=== PATIENT | female | born 1975 | race Caucasian/White ===

== ENCOUNTER 2019-02-14 20:14 | Emergency (ER) | payer MEDICAID ==
[~2019-02-14] VITALS: Ht 167.6 cm; Wt 90.8 kg
[2019-02-14 22:29] LABS: APPEARANCE,URINE Slightly Cloudy (CLEAR); BILIRUBIN,URINE SMALL (NEGATIVE); BLOOD, URINE Negative Ery/uL (NEGATIVE); COLOR,URINE Yellow (YELLOW); KETONES,URINE Trace (NEGATIVE); LEUKOCYTE ESTERASE ,URINE Trace (NEGATIVE); NITRITE, URINE Negative (NEGATIVE); PROTEIN,URINE 30 mg/dl (NEGATIVE); UGLUCOSE Negative (NEGATIVE)
[2019-02-14 22:29] LABS: EOSINOPHILS % (AUTO) 1.8 % (0.0-6.0); WHITE BLOOD COUNT (AUTO) 6.5 K/uL (4.3-11.0)
[2019-02-14 22:31] LABS: CALCIUM, SERUM 8.5 mg/dL (8.5-10.1); CARBON DIOXIDE 25 mmol/L (21-32); CHLORIDE 106 mmol/L (98-107); GLUCOSE 100 mg/dL (74-106); POTASSIUM 3.3 mmol/L (3.5-5.1); SODIUM SERUM 141 mmol/L (136-145); UREA NITROGEN, BLOOD 14 mg/dL (7-18)
[2019-02-14 22:33] LABS: HEMATOCRIT 35 % (33-45); MEAN CORPUSCULAR HGB CONC 34 g/dl (31.0-36.0)
[2019-02-14 22:34] LABS: BASOPHILS % (AUTO) 1.3 % (0.0-2.0); LYMPHOCYTES # (AUTO) 1.3 /CMM (0.8-4.8); LYMPHOCYTES % (AUTO) 20.1 % (20.0-44.0); MONOCYTES % (AUTO) 9.7 % (2.0-12.0); NEUTROPHILS # (AUTO) 4.3 /CMM (1.8-8.9); NEUTROPHILS % (AUTO) 67.1 % (43.0-81.0)
[2019-02-14 22:35] LABS: BASOPHILS # (AUTO) 0.1 /CMM (0.0-0.2); MEAN CORPUSCULAR VOLUME 87 fL (82-100); MONOCYTES # (AUTO) 0.6 /CMM (0.1-1.30); PLATELET COUNT (AUTO) 212 /CMM (150-450); RED BLOOD CELL COUNT(AUTO) 4.03 MIL/uL (4.0-5.2)
[2019-02-14 22:37] LABS: ALANINE AMINOTRANSFERASE 30 U/L (12-78); ALBUMIN 3.8 g/dL (3.4-5.0); ALCOHOL, BLOOD < 3 mg/dL (0-0); ALKALINE PHOSPHATASE 73 U/L (46-116); ASPARTATE AMINOTRANSFERASE 19 U/L (15-37); BILIRUBIN,DIRECT 0.2 mg/dL (0.0-0.2); BILIRUBIN,TOTAL 0.7 mg/dL (0.2-1.0); TOTAL PROTEIN, SERUM 6.9 g/dL (6.4-8.2)
[2019-02-14 22:38] LABS: ACETAMINOPHEN 0 ug/ml (10-30); SALICYLATE 0.7 mg/dL (2.8-20.0)
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
[2019-02-14 23:13] LABS: BACTERIA,URINE Few /HPF (None Seen); RBC,URINE 0-2 /HPF (0-2); SQUAMOUS EPITHELIAL CELL,UR Few /HPF (None Seen)
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
[2019-02-15] MEDS ORDERED: LORAZEPAM INJ 2 MG/ML VIAL IM ONE (02:00)
--- NOTE | 2019-02-15 02:00 | NUR ---
PSYCH EVAL BEING DONE BY LILIYA
[2019-02-15] MEDS ORDERED: LORAZEPAM INJ 2 MG/ML VIAL ONE (02:07)
--- NOTE | 2019-02-15 02:18 | NUR ---
ADMINISTERED ATIVAN 2MG IM ON RT DELTOID
--- NOTE | 2019-02-15 03:38 | NUR ---
Pt IS COMFORTABLY ASLEEP IN BED. NO S/S OF ACUTE DISTRESS OR SOB NOTED. REPIRATIONS EVEN AND UNLABORED. SITTER AT BEDSIDE FOR SAFETY. WILL CONTINUE TO MONITOR Pt's CONDITION AND SAFETY.
--- NOTE | 2019-02-15 06:46 | NUR ---
SPOKE WITH Pt's MOTHER ON THE PHONE TO SEE IF SHE CAN MENU PLANNER HER DAUGHTER IN THE ER. THE MOTHER SAID SHE CANNOT MENU PLANNER HER DAUGHTER RIGHT NOW BECAUSE SHE TOOK A SLEEPING PILL AT NIGHT AND STILL FEELS DROWSY FROM IT AND DOES NOT FEEL SAFE TO BE DRIVING AT THIS TIME. MOTHER SAID SHE WILL TRY TO MENU PLANNER HER DAUGHTER LATER ON AROUND 9AM IF SHE CAN.
--- NOTE | 2019-02-15 06:47 | NUR ---
CHANA TREVIZO (MOTHER) HOME #: [phone] HOME ADDRESS: [id number] [place] [address]
--- NOTE | 2019-02-15 07:30 | NUR ---
REPORT RECEIVED FROM ROBERT SHORT FOR U[facility]
--- NOTE | 2019-02-15 07:31 | NUR ---
ENDORSED TO DAYSHIFT CAMPER ASSEMBLERDEJA RICHARDSON FOR Pt's U[facility]O. Pt IS RESTING IN BED. NO S/S OF ACUTE DISTRESS OR SOB NOTED. RESPIRATIONS EVEN AND UNLABORED.
--- NOTE | 2019-02-15 07:35 | NUR ---
Sitter at bedside.
--- NOTE | 2019-02-15 08:40 | NUR ---
Provided w breakfast tray. Pt tolerating PO well.
--- NOTE | 2019-02-15 11:36 | NUR ---
Patient discharged to home, provided w taxi voucher in stable condition, going to [facility]. Written and verbal after care instructions given. Patient verbalizes understanding of instruction.
[2019-02-15 11:40] VITALS: BP 136/71
== END 2019-02-15 11:41 | disposition home or self-care (01) ==
LOC: ER 20:31
DX: F20.9 Schizophrenia, unspecified (principal); I10 Essential (primary) hypertension; Z60.2 Problems related to living alone
CPT/HCPCS: 36415; 80048; 80076; 80305; 80307; 80329; 81001; 84703; 85025; 87086; 96372; 99284; G0480; J2060; 81000-TC

== ENCOUNTER 2021-12-29 19:13 | Emergency (ER) | payer MEDICAID ==
[~2021-12-29] VITALS: Ht 167.6 cm; Wt 113.4 kg
--- NOTE | 2021-12-29 19:20 | NUR ---
BIBS C/O CONSTIPATION SINCE THIS MORNING, USUALLY GO 2X A DAY, "IT HURTS WHEN I PUSH." PLACED COMFORTABLY IN BED. VITALS CHECKED.
--- NOTE | 2021-12-29 20:00 | NUR ---
STORE CLERK CASHIER AT BEDSIDE.
--- NOTE | 2021-12-29 21:25 | NUR ---
RECTAL EXAM DONE BY DR SAM AT BEDSIDE
[2021-12-29] MEDS ORDERED: POLY17PO4 PO (22:07)
[2021-12-29] MEDS ORDERED: DOCU-141 PO (22:07)
--- NOTE | 2021-12-29 22:23 | NUR ---
Patient discharged to home in stable condition. Written and verbal after care instructions given. Patient verbalizes understanding of instruction. Pt ambulatory with a steady gait
[2021-12-29 22:24] VITALS: BP 162/93
== END 2021-12-29 22:25 | disposition home or self-care (01) ==
LOC: ER 19:22
DX: K64.9 Unspecified hemorrhoids (principal); K59.00 Constipation, unspecified; I10 Essential (primary) hypertension; F20.9 Schizophrenia, unspecified; Z60.2 Problems related to living alone; Z79.899 Other long term (current) drug therapy
CPT/HCPCS: 74018

== ENCOUNTER 2022-03-18 15:37 | Emergency (ER) | payer MEDICAID ==
[~2022-03-18] VITALS: Ht 165.1 cm; Wt 113.4 kg
[~2022-03-18 15:37] MED LIST: POLY17PO4 PO
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
--- NOTE | 2022-03-18 16:00 | NUR ---
Seen by provider
--- NOTE | 2022-03-18 16:10 | NUR ---
SEEN BY DR. MACK
[2022-03-18] MEDS ORDERED: CARI350T PO (17:15)
[2022-03-18] MEDS ORDERED: LABE100T5 PO (17:17)
--- NOTE | 2022-03-18 17:37 | NUR ---
D/C INSTRACTION DIVEN TO PT FULLY AND VERBLIZED UNDERSTOOD d/ home with rx and fallow up care
[2022-03-18 17:45] VITALS: BP 177/90
== END 2022-03-18 17:48 | disposition home or self-care (01) ==
LOC: ER 16:01
DX: M25.572 Pain in left ankle and joints of left foot (principal); M25.571 Pain in right ankle and joints of right foot; I10 Essential (primary) hypertension; Z60.2 Problems related to living alone
CPT/HCPCS: 73610-TC

== ENCOUNTER 2024-02-03 20:21 | Emergency (ER) | payer MEDICAID, OTHER ==
[~2024-02-03] VITALS: Ht 165.1 cm; Wt 117.9 kg
[~2024-02-03 20:21] MED LIST changes: +CARI350T PO; +LABE100T5 PO
[2024-02-03] MEDS: IV NS 0.9% 1,000 ML BAG IV ONE (21:58)
[2024-02-03] MEDS ORDERED: MECLIZINE HCL 12.5 MG TABLET ONE ×2 (21:59→22:03)
[2024-02-03 22:06] LABS: BASOPHILS % (AUTO) 0.3 % (0.0-2.0); EOSINOPHILS % (AUTO) 0.3 % (0.0-6.0); HEMATOCRIT 36 % (33-45); HEMOGLOBIN 11.9 g/dL (11.5-14.8); LYMPHOCYTES # (AUTO) 1.2 K/uL (0.8-4.8); LYMPHOCYTES % (AUTO) 11.3 % (20.0-44.0); MEAN CORPUSCULAR HEMOGLOBIN 27 PG (26.0-33.0); MEAN CORPUSCULAR HGB CONC 33 g/dl (31.0-36.0); MEAN CORPUSCULAR VOLUME 81 fL (82-100); MONOCYTES # (AUTO) 0.5 K/uL (0.1-1.30); MONOCYTES % (AUTO) 4.6 % (2.0-12.0); NEUTROPHILS # (AUTO) 9.2 K/uL (1.8-8.9); NEUTROPHILS % (AUTO) 83.5 % (43.0-81.0); PLATELET COUNT (AUTO) 301 K/uL (150-450); RED BLOOD CELL COUNT(AUTO) 4.44 MIL/uL (4.0-5.2); RED CELL DISTRIBUTION WIDTH 14.3 % (11.5-15.0)
[2024-02-03] MEDS: MECLIZINE HCL 12.5 MG TABLET PO ONE (22:07)
[2024-02-03 22:30] LABS: ERYTHROCYTE SEDIMENTATION RATE 66 MM/HR (0-30); INR 0.98 (0.91-1.10); PARTIAL THROMBOPLASTIN TIME 30.7 SEC (24.3-34.3); PROTHROMBIN TIME 10.4 SECS (9.2-11.1)
[2024-02-03 22:45] LABS: LACTIC ACID 2.3 mmol/L (0.4-2.0)
[2024-02-03] MEDS ORDERED: hydrALAZINE HCL IV 20 MG VIAL ONE (22:49)
[2024-02-03] MEDS: hydrALAZINE HCL IV 20 MG VIAL IV ONE (22:55)
[2024-02-03 23:00] LABS: ALANINE AMINOTRANSFERASE 26 U/L (12-78); ALBUMIN 3.3 g/dL (3.4-5.0); ALKALINE PHOSPHATASE 110 U/L (46-116); ASPARTATE AMINOTRANSFERASE 12 U/L (15-37); BILIRUBIN,DIRECT 0.1 mg/dL (0.0-0.2); BILIRUBIN,TOTAL 0.5 mg/dL (0.2-1.0); CALCIUM, SERUM 9.5 mg/dL (8.5-10.1); CARBON DIOXIDE 26 mmol/L (21-32); CHLORIDE 98 mmol/L (98-107); CREATININE 0.9 mg/dL (0.6-1.3); GLUCOSE 156 mg/dL (74-106); POTASSIUM 3.7 mmol/L (3.5-5.1); SODIUM SERUM 134 mmol/L (136-145); TOTAL PROTEIN, SERUM 7.8 g/dL (6.4-8.2); UREA NITROGEN, BLOOD 13 mg/dL (7-18)
[2024-02-03 23:09] LABS: APPEARANCE,URINE CLEAR (CLEAR); BILIRUBIN,URINE NEGATIVE (NEGATIVE); BLOOD, URINE NEGATIVE Ery/uL (NEGATIVE); COLOR,URINE YELLOW (YELLOW); KETONES,URINE NEGATIVE (NEGATIVE); LEUKOCYTE ESTERASE ,URINE TRACE (NEGATIVE); NITRITE, URINE NEGATIVE (NEGATIVE); PROTEIN,URINE NEGATIVE (NEGATIVE); UGLUCOSE NEGATIVE (NEGATIVE); UROBILINOGEN,URINE 0.2 EU/dL (0.2)
[2024-02-03 23:14] LABS: ADD URINE CULTURE NO; BACTERIA,URINE Rare /HPF (None Seen); RBC,URINE 0-2 /HPF (0-2); SQUAMOUS EPITHELIAL CELL,UR Few /HPF (None Seen)
[2024-02-03 23:25] LABS: AMPHETAMINE, URINE NEGATIVE (NEGATIVE); BARBITURATE, URINE NEGATIVE (NEGATIVE); BENZODIAZEPINE, URINE NEGATIVE (NEGATIVE); CANNABINOID, URINE NEGATIVE (NEGATIVE); COCCAINE, URINE NEGATIVE (NEGATIVE); OPIATE, URINE NEGATIVE (NEGATIVE); PHENCYCLIDINE SCREEN,URINE NEGATIVE (NEGATIVE)
[2024-02-03] MEDS: IV NS 0.9% 1,000 ML IV ONE (23:30)
[2024-02-04] MEDS ORDERED: LEVETIRACETAM (500MG) 500 MG/5 ML VIAL IV ONE (00:10)
[2024-02-04] MEDS ORDERED: dexaMETHasone SOD PHOSPHATE 1 ML ONE (00:10)
[2024-02-04] MEDS: LEVETIRACETAM (500MG) 1,000 MG in IV NS 0.9% 90 ML IV SCH (00:41)
[2024-02-04] MEDS: dexaMETHasone SOD PHOSPHATE 10 MG/ML VIAL IV ONE (00:41)
[2024-02-04] MEDS ORDERED: CLONIDINE HCL 0.1 MG TABLET ONE (01:11)
[2024-02-04] MEDS ORDERED: hydrALAZINE HCL IV 20 MG VIAL ONE (01:15)
[2024-02-04] MEDS: hydrALAZINE HCL IV 20 MG VIAL IV ONE (01:27)
[2024-02-04] MEDS ORDERED: CLONIDINE HCL 0.1 MG TABLET PO ONE (01:30)
[2024-02-04] MEDS ORDERED: LORAZEPAM INJ 2 MG/ML VIAL ONE (01:47)
[2024-02-04] MEDS: LORAZEPAM INJ 2 MG/ML VIAL IV ONE (01:53)
[2024-02-04 01:57] VITALS: BP 155/83; TEMP 98.7; O2SAT 98
== END 2024-02-04 02:23 | disposition hospice, inpatient (51) ==
LOC: ER 20:26
DX: R22.0 Localized swelling, mass and lump, head (principal); I10 Essential (primary) hypertension; R51.9 Headache, unspecified; R42 Dizziness and giddiness; E78.5 Hyperlipidemia, unspecified; F25.9 Schizoaffective disorder, unspecified; Z60.2 Problems related to living alone
CPT/HCPCS: 99291; 70450; 71045; 96361 ×2; 96375 ×3; 93005; 85025; 80048; 83605; 80076; 85652; 36415; 84484; 85730; 82962; 80307; 81001; 96365; 96376; J8597 ×2; J0360 ×2; J2060; J1100; J1953; J7030; J7040

== ENCOUNTER 2025-07-25 18:18 | Emergency (ER) | payer OTHER ==
[~2025-07-25] VITALS: Ht 167.6 cm; Wt 86.2 kg
[2025-07-25 18:52] LABS: PLATELET COUNT (AUTO) 167 K/uL (150-450); RED BLOOD CELL COUNT(AUTO) 4.82 MIL/uL (4.0-5.2); RED CELL DISTRIBUTION WIDTH 14.9 % (11.5-15.0); WHITE BLOOD COUNT (AUTO) 8.7 K/uL (4.3-11.0)
[2025-07-25 19:01] LABS: CALCIUM, SERUM 9.0 mg/dL (8.5-10.1); CREATININE 0.4 mg/dL (0.6-1.3); SODIUM SERUM 144 mmol/L (136-145); UREA NITROGEN, BLOOD 18 mg/dL (7-18)
[2025-07-25 19:04] LABS: INR 0.96 (0.91-1.10)
[2025-07-25 19:07] LABS: ASPARTATE AMINOTRANSFERASE 22 U/L (15-37); TOTAL PROTEIN, SERUM 6.5 g/dL (6.4-8.2)
[2025-07-25 19:35] LABS: LACTIC ACID 2.0 mmol/L (0.4-2.0)
[2025-07-25] MEDS ORDERED: LEVETIRACETAM (500MG) 500 MG/5 ML VIAL IV ONE (20:11)
[2025-07-25] MEDS ORDERED: dexaMETHasone SOD PHOSPHATE 1 ML ONE (20:11)
[2025-07-25 20:20] VITALS: TEMP 98.9
[2025-07-25] MEDS: LEVETIRACETAM (500MG) 500 MG in IV NS 0.9% 100 ML IV SCH (20:23)
[2025-07-25] MEDS: dexaMETHasone SOD PHOSPHATE 4 MG/ML VIAL IV ONE (20:23)
[2025-07-25 21:49] VITALS: BP 148/99; O2SAT 96
== END 2025-07-25 21:57 ==
LOC: ER 18:25
DX: G93.9 Disorder of brain, unspecified (principal); I11.9 Hypertensive heart disease without heart failure; E78.5 Hyperlipidemia, unspecified; Z79.899 Other long term (current) drug therapy; Z85.841 Personal history of malignant neoplasm of brain
CPT/HCPCS: 99291; 96365; 70450; 96375; 93005 ×2; 71045; 85025; 80048; 87040 ×2; 83605; 80076; 36415; 84484; 85730; J1100; J7030; J1953 ×2